=== PATIENT | female | born 1970 | race Caucasian/White ===

== ENCOUNTER 2017-08-22 08:45 | Outpatient (CLI) | payer BC ==
[2017-08-22 19:02] LABS: BASOPHILS % (AUTO) 0.5 %; EOSINOPHILS # (AUTO) 0.1 10^3/uL (0.0-0.7); EOSINOPHILS % (AUTO) 1.3 %; HCT - HEMATOCRIT 34.8 % (37.0-47.0); HGB - HEMOGLOBIN 11.5 g/dL (12.0-16.0); LYMPHOCYTES # (AUTO) 1.3 10^3/uL (1.5-3.5); LYMPHOCYTES % (AUTO) 21.8 %; MEAN CORPUSCULAR HEMOGLOBIN 34.1 pg (27.0-31.0); MEAN CORPUSCULAR HGB CONC 33.1 g/dL (32.0-36.0); MONOCYTES # (AUTO) 0.6 10^3/uL (0.0-1.0); MONOCYTES % (AUTO) 10.4 %; NEUTROPHILS # (AUTO) 3.9 10^3/uL (1.5-6.6); RED BLOOD COUNT 3.38 10^6/uL (4.20-5.40); UNCORRECTED WHITE BLOOD COUNT 5.9 x10^3/uL; WHITE BLOOD COUNT 5.9 x10^3/uL (4.8-10.8)
[2017-08-22 19:30] LABS: ALBUMIN/GLOBULIN RATIO 1.5 (1.0-2.2); BILIRUBIN,TOTAL 0.3 mg/dL (0.2-1.0); BUN - BLOOD UREA NITROGEN 8 mg/dL (6-20); CALCIUM 8.8 mg/dL (8.5-10.3); CARBON DIOXIDE - CO2 25 mmol/L (21-32); CHLORIDE 97 mmol/L (101-111); CHOL/HDL RATIO 2.3 (<4.4); CHOLESTEROL 175 mg/dL; CREATININE 0.6 mg/dL (0.4-1.0); GFR - MDRD 107 (>89); GLUCOSE 78 mg/dL (70-100); HDL CHOLESTEROL 75 mg/dL; LDL/HDL RATIO 0.8 (<4.4); POTASSIUM 4.2 mmol/L (3.5-5.0); SODIUM 131 mmol/L (135-145); TOTAL PROTEIN 7.2 g/dL (6.7-8.2); TRIGLYCERIDES 213 mg/dL; VLDL CHOLESTEROL 43 mg/dL
== END 2017-08-22 08:46 | disposition home or self-care (01) ==
LOC: LAB.F 08:45
PROVIDERS: ATTEND Physician Assistant Medical
DX: Z00.00 Encounter for general adult medical examination without abnormal findings (principal); E55.9 Vitamin D deficiency, unspecified; Z79.899 Other long term (current) drug therapy; I10 Essential (primary) hypertension
CPT/HCPCS: 36415; 80053; 80061; 82306; 84443; 85025

== ENCOUNTER 2019-05-05 09:29 | Outpatient (CLI) | payer OTHER ==
--- NOTE | 2019-05-06 08:51 | Mammography Report ---
Reason: SCREENING MAMMO Procedure Date: 05/05/2019 Accession Number: [id number] / [id number] Procedure: MGS - Screening Mammo Dig Bilat CPT Code: FULL RESULT: EXAM: Screening Mammo Dig Bilat DATE: 05/05/2019 9:43 AM CLINICAL HISTORY: Screening encounter. History of nulliparity. TECHNIQUE: (B) - Bilateral CC and MLO views were obtained. COMPARISON: 12/15/2014 and 10/28/2010. PARENCHYMAL PATTERN: (A) - The breast(s) demonstrate(s) scattered fibroglandular densities. FINDINGS: There are no suspicious masses, calcifications, or areas of distortion. IMPRESSION: Negative examination. BI-RADS category 1. RECOMMENDATION: (ANNUAL) - Recommend routine annual screening mammography. BI-RADS CATEGORY: (1) - Negative. STANDARD QUALIFYING STATEMENTS: 1. This examination was reviewed with the aid of Computer-Aided Detection (CAD). 2. A negative or benign imaging report should not preclude biopsy if clinically suspicious findings are present. 3. Dense breasts may obscure an underlying neoplasm. 4. This examination was reviewed without the aid of 3D breast imaging (tomosynthesis).
== END 2019-05-05 09:30 | disposition home or self-care (01) ==
LOC: DI.S 09:29
PROVIDERS: ATTEND Nurse Practitioner Family
DX: Z12.31 Encounter for screening mammogram for malignant neoplasm of breast (principal)
CPT/HCPCS: 77067

== ENCOUNTER 2021-04-05 10:52 | Outpatient (CLI) | payer OTHER ==
[2021-04-05 15:01] LABS: ALBUMIN 4.4 g/dL (3.2-5.5); ALBUMIN/GLOBULIN RATIO 1.4 (1.0-2.2); BILIRUBIN,TOTAL 0.6 mg/dL (0.2-1.0); CALCIUM 9.1 mg/dL (8.5-10.3); CREATININE 0.6 mg/dL (0.4-1.0); POTASSIUM 4.4 mmol/L (3.5-5.0); TOTAL PROTEIN 7.5 g/dL (6.7-8.2)
== END 2021-04-05 10:53 | disposition home or self-care (01) ==
LOC: LAB.S 10:52
PROVIDERS: ATTEND Registered Nurse
DX: I10 Essential (primary) hypertension (principal)
CPT/HCPCS: 36415; 80053

== ENCOUNTER 2022-01-30 08:38 | Outpatient (CLI) | payer OTHER ==
--- NOTE | 2022-01-30 11:44 | Mammography Report ---
BILATERAL DIGITAL SCREENING MAMMOGRAM 3D/2D: 01/30/2022 CLINICAL: Routine screening. Family history of breast cancer. Comparison is made to exams dated: 05/05/2019 mammogram and 12/15/2014 mammogram - [facility]. There are scattered fibroglandular elements in both breasts. No significant masses, calcifications, or other findings are seen in either breast. There has been no significant interval change. IMPRESSION: NEGATIVE There is no mammographic evidence of malignancy. A 1 year screening mammogram is recommended. This exam was interpreted at Station ID: [id number]. NOTE: For mammograms, a report in lay terms will be sent to the patient. Approximately 15% of breast malignancies will not be visualized mammographically. In the management of a palpable breast mass, a negative mammogram must not discourage biopsy of a clinically suspicious lesion. Electronically Signed By: Ale howard/penrad:01/30/2022 10:43:36 ACR BI-RADS Category 1: Negative 3341F PARENCHYMAL PATTERN: (A) - The breast(s) demonstrate(s) scattered fibroglandular densities. BI-RADS CATEGORY: (1) - 1 RECOMMENDATION: (ANNUAL) - Recommend routine annual screening mammography. [id number] 1 year screening LATERALITY: (B)
== END 2022-01-30 08:39 | disposition home or self-care (01) ==
LOC: DI.S 08:38
PROVIDERS: ATTEND Nurse Practitioner Family
DX: Z12.31 Encounter for screening mammogram for malignant neoplasm of breast (principal); Z80.3 Family history of malignant neoplasm of breast

== ENCOUNTER 2022-04-05 08:37 | Outpatient (CLI) | payer OTHER ==
[2022-04-05 14:43] LABS: BASOPHILS % (AUTO) 0.5 %; EOSINOPHILS # (AUTO) 0.2 10^3/uL (0.0-0.7); EOSINOPHILS % (AUTO) 2.6 %; HCT - HEMATOCRIT 36.6 % (37.0-47.0); HGB - HEMOGLOBIN 12.2 g/dL (12.0-16.0); LYMPHOCYTES # (AUTO) 1.5 10^3/uL (1.5-3.5); LYMPHOCYTES % (AUTO) 20.8 %; MEAN CORPUSCULAR HEMOGLOBIN 34.3 pg (27.0-31.0); MEAN CORPUSCULAR HGB CONC 33.3 g/dL (32.0-36.0); MEAN CORPUSCULAR VOLUME 102.8 fL (81.0-99.0); MEAN PLATELET VOLUME 9.8 fL (7.9-10.8); MONOCYTES # (AUTO) 0.7 10^3/uL (0.0-1.0); MONOCYTES % (AUTO) 9.7 %; NEUTROPHILS # (AUTO) 4.9 10^3/uL (1.5-6.6); NEUTROPHILS % (AUTO) 66.1 %; PLT - PLATELET COUNT 321 10^3/uL (130-450); RED BLOOD COUNT 3.56 10^6/uL (4.20-5.40); RED CELL DISTRIBUTION WIDTH 12.7 % (12.0-15.0); WHITE BLOOD COUNT 7.3 x10^3/uL (4.8-10.8)
[2022-04-05 15:15] LABS: FOLATE 6.79 ng/mL (5.90 - >24.8)
[2022-04-05 15:28] LABS: ALBUMIN 4.3 g/dL (3.2-5.5); ALBUMIN/GLOBULIN RATIO 1.2 (1.0-2.2); BILIRUBIN,TOTAL 0.7 mg/dL (0.2-1.0); CALCIUM 9.5 mg/dL (8.5-10.3); CREATININE 0.6 mg/dL (0.4-1.0); POTASSIUM 4.3 mmol/L (3.5-5.0); TOTAL PROTEIN 7.8 g/dL (6.7-8.2)
== END 2022-04-05 08:38 | disposition home or self-care (01) ==
LOC: LAB.S 08:37
PROVIDERS: ATTEND Registered Nurse
DX: L50.8 Other urticaria (principal); R74.8 Abnormal levels of other serum enzymes; D75.89 Other specified diseases of blood and blood-forming organs
CPT/HCPCS: 36415; 80053; 82607; 82746; 82977; 83520; 84443; 85025; 86160; 86161

== ENCOUNTER 2023-03-12 07:08 | Outpatient (CLI) | payer OTHER ==
--- NOTE | 2023-03-12 09:36 | Ultrasound Report ---
PROCEDURE: Abdomen Limited INDICATIONS: ELEVATED LIVER ENZYMES TECHNIQUE: Real-time focused scanning was performed of the abdomen, with image documentation. COMPARISONS: None. FINDINGS: Liver: Liver is normal in size and homogeneous in echotexture. Gallbladder: Unremarkable. Biliary ducts: Intrahepatic bile ducts are non-dilated. Extrahepatic bile duct caliber measures 4 m m. Normal is 6-7 mm or less in diameter, or 10 mm or less post-cholecystectomy. Pancreas: Visualized portions of the pancreas are sonographically normal. Right kidney: Normal in size and echotexture. Right kidney measures 10.0 cm long. No hydronephrosis or nephrolithiasis. No solid masses. No complex renal cystic lesions which require follow-up. Aorta: Visualized aorta is normal in caliber at less than 3 cm. IVC: Intrahepatic inferior vena cava is patent. Miscellaneous: No free abdominal fluid. IMPRESSION: Unremarkable abdominal ultrasound. Reviewed by: Rolf Pearson MD on 03/12/2023 9:35 AM PDT Approved by: Rolf Pearson MD on 03/12/2023 9:35 AM PDT Station ID: [id number]
== END 2023-03-12 07:09 | disposition home or self-care (01) ==
LOC: DI 07:08
PROVIDERS: ATTEND Registered Nurse
DX: R74.01 Elevation of levels of liver transaminase levels (principal)

== ENCOUNTER 2023-06-29 13:24 | Outpatient (CLI) | payer OTHER ==
[2023-06-29 19:35] LABS: BASOPHILS % (AUTO) 0.7 %; EOSINOPHILS # (AUTO) 0.2 10^3/uL (0.0-0.7); EOSINOPHILS % (AUTO) 3.3 %; HCT - HEMATOCRIT 32.9 % (37.0-47.0); HGB - HEMOGLOBIN 10.7 g/dL (12.0-16.0); LYMPHOCYTES # (AUTO) 2.1 10^3/uL (1.5-3.5); LYMPHOCYTES % (AUTO) 45.4 %; MEAN CORPUSCULAR HEMOGLOBIN 34.2 pg (27.0-31.0); MEAN CORPUSCULAR HGB CONC 32.5 g/dL (32.0-36.0); MEAN CORPUSCULAR VOLUME 105.1 fL (81.0-99.0); MEAN PLATELET VOLUME 10.8 fL (7.9-10.8); MONOCYTES # (AUTO) 0.6 10^3/uL (0.0-1.0); MONOCYTES % (AUTO) 12.6 %; NEUTROPHILS # (AUTO) 1.7 10^3/uL (1.5-6.6); NEUTROPHILS % (AUTO) 37.8 %; PLT - PLATELET COUNT 194 10^3/uL (130-450); RED BLOOD COUNT 3.13 10^6/uL (4.20-5.40); RED CELL DISTRIBUTION WIDTH 13.2 % (12.0-15.0); WHITE BLOOD COUNT 4.5 x10^3/uL (4.8-10.8)
[2023-06-29 20:54] LABS: ALBUMIN 3.7 g/dL (3.2-5.5); ALBUMIN/GLOBULIN RATIO 1.5 (1.0-2.2); BILIRUBIN,TOTAL 0.4 mg/dL (0.2-1.0); CALCIUM 8.8 mg/dL (8.5-10.3); CREATININE 0.9 mg/dL (0.6-1.3); POTASSIUM 4.1 mmol/L (3.5-4.5); TOTAL PROTEIN 6.1 g/dL (6.4-8.9)
== END 2023-06-29 13:25 | disposition home or self-care (01) ==
LOC: LAB.S 13:24
PROVIDERS: ATTEND Physician Assistant
DX: R10.13 Epigastric pain (principal); M54.89 Other dorsalgia
CPT/HCPCS: 36415; 80053; 83690; 85025

== ENCOUNTER 2023-11-22 13:13 | Observation (INO) | payer OTHER ==
--- NOTE | 2023-11-22 14:32 | ED Physician Documentation ---
History of Present Illness - Stated complaint Stated Complaint: FEET NUMBNESS,HAND NUMBESS, L SIDE - Chief complaint Chief Complaint: Neuro - History obtained from History obtained from: Patient - Additonal information Additional information: Patient comes to the emergency department chief complaint of feeling of numbness in her feet today and feeling weak and lightheaded. The patient states that she does drink 4-5 vodka drinks every day but also drinks a lot of water. She states that she went to work this morning without eating breakfast and was on her feet all day without eating anything. She began to feel lightheaded and Ended up having to leave work. She states it was very cold at work when she got there and that she has poor circulation from her drinking and Raynaud's, and that her feet just began to feel very tingly. The patient states she has the same problems in her hands. She is very well-established with primary care and that they have been following her for her ongoing appetite issues and vomiting as well. She states that has been going on and off for months. PD PAST MEDICAL HISTORY - Past Medical History Past Medical History: Yes Neuro: Other GI: GERD Other Past Medical History: paul - Past Surgical History Past Surgical History: No - Present Medications Home Medications: Ambulatory Orders Medication Instructions Recorded Confirmed Fluoxetine HCl [Prozac] 20 mg PO DAILY 11/22/23 11/22/23 Folic Acid 10 mg PO DAILY 11/22/23 11/22/23 Lisinopril [Zestril] 10 mg PO DAILY 11/22/23 11/22/23 Metoprolol Succinate [Toprol Xl] 50 mg PO DAILY 11/22/23 11/22/23 Pantoprazole Sodium [Protonix] 20 mg PO DAILY 11/22/23 11/22/23 - Allergies Allergies/Adverse Reactions: Allergies Allergy/AdvReac Type Severity Reaction Status Date / Time No Known Drug Allergies Allergy Verified 11/22/23 14:28 - Social History Does the pt smoke?: No Smoking Status: Never smoker Does the pt drink ETOH?: Yes ETOH Use: Wine, Liquor Does the pt have substance abuse?: No - Immunizations Immunizations are current?: No - POLST Patient has POLST: No PD ED PE NORMAL - Vitals Vital signs reviewed: Yes - General General: Alert and oriented X 3, No acute distress, Well developed/nourished - HEENT HEENT: Atraumatic, PERRL, EOMI, Moist mucous membranes - Neck Neck: Supple, no meningeal sign - Cardiac Cardiac: RRR, No murmur - Respiratory Respiratory: No respiratory distress, Clear bilaterally - Abdomen Abdomen: Soft, Non tender, Non distended - Derm Derm: Warm and dry, No rash, Other (Purpleish discoloration of hands and feet.) - Extremities Extremities: No deformity, No edema - Neuro Neuro: Alert and oriented X 3 - Psych Psych: Normal mood, Normal affect Results - Vitals Vitals: Oxygen O2 Source Room air - Labs Labs: Laboratory Tests 11/22/23 11/22/23 11/22/23 14:38 14:38 15:45 WBC 4.5 L RBC 2.93 L Hgb 11.8 L Hct 29.5 L MCV 100.7 H MCH 33.6 H MCHC 34.0 RDW 13.1 Plt Count 190 MPV 9.7 Neut # (Auto) 2.6 Lymph # (Auto) 1.5 [place] # (Auto) 0.4 Eos # (Auto) 0.0 Baso # (Auto) 0.0 Absolute Nucleated RBC 0.00 Nucleated RBC % 0.0 Sodium 120 L* Potassium 4.2 Chloride 87 L Carbon Dioxide 20 L Anion Gap 13.0 BUN 17 Creatinine 0.4 L Estimated GFR (MDRD) 167 Glucose 84 Calcium 8.4 L Total Bilirubin 1.4 H AST 212 H ALT 83 H Alkaline Phosphatase 216 H Troponin I High Sens 4.4 Total Protein 5.6 L Albumin 3.4 Globulin 2.2 Albumin/Globulin Ratio 1.5 Lipase 116 H Urine Opiates Screen NEGATIVE Ur Buprenorphine Scrn NEGATIVE Ur Oxycodone Screen NEGATIVE Urine Methadone Screen NEGATIVE Ur Barbiturates Screen NEGATIVE Ur Tricyclics Screen NEGATIVE Ur Phencyclidine Scrn NEGATIVE Ur Amphetamine Screen NEGATIVE U Methamphetamines Scrn NEGATIVE U Benzodiazepines Scrn NEGATIVE Urine Cocaine Screen NEGATIVE U Cannabinoids Screen NEGATIVE Ur Drug Screen Comment CUTOFF CONC BELOW: PD Medical Decision Making - ED course Complexity details: reviewed results, re-evaluated patient, considered differential, d/w patient, d/w family ED course: The patient was very anxious to get her test done and leave the emergency department, but the patient turnout to have a sodium of 120. I felt she should be admitted for this. She had already been given a liter of fluid in the emergency department and I discussed the case with Dr. Howard, who agreed to admit the patient to her service. Departure - Departure Disposition: ED Place in Observation Clinical Impression: Hyponatremia Condition: Fair Discharge Date/Time: 11/22/23 17:26
[2023-11-22 14:47] LABS: BASOPHILS % (AUTO) 0.7 %; EOSINOPHILS % (AUTO) 0.2 %; HCT - HEMATOCRIT 29.5 % (37.0-47.0); HGB - HEMOGLOBIN 11.8 g/dL (12.0-16.0); LYMPHOCYTES # (AUTO) 1.5 10^3/uL (1.5-3.5); LYMPHOCYTES % (AUTO) 33.6 %; MEAN CORPUSCULAR VOLUME 100.7 fL (81.0-99.0); MEAN PLATELET VOLUME 9.7 fL (7.9-10.8); MONOCYTES # (AUTO) 0.4 10^3/uL (0.0-1.0); MONOCYTES % (AUTO) 8.1 %; NEUTROPHILS # (AUTO) 2.6 10^3/uL (1.5-6.6); NEUTROPHILS % (AUTO) 57.2 %; PLT - PLATELET COUNT 190 10^3/uL (130-450); RED BLOOD COUNT 2.93 10^6/uL (4.20-5.40); RED CELL DISTRIBUTION WIDTH 13.1 % (12.0-15.0); WHITE BLOOD COUNT 4.5 x10^3/uL (4.8-10.8)
[2023-11-22 15:06] LABS: TROPONIN I HIGH SENSITIVITY 4.4 ng/L (2.3-14.8)
[2023-11-22 15:30] LABS: ALBUMIN 3.4 g/dL (3.2-5.5); ALBUMIN/GLOBULIN RATIO 1.5 (1.0-2.2); BILIRUBIN,TOTAL 1.4 mg/dL (0.2-1.0); CALCIUM 8.4 mg/dL (8.5-10.3); CREATININE 0.4 mg/dL (0.6-1.3); POTASSIUM 4.2 mmol/L (3.5-4.5); TOTAL PROTEIN 5.6 g/dL (6.4-8.9)
[2023-11-22 15:55] LABS: MEAN CORPUSCULAR HEMOGLOBIN 33.6 pg (27.0-31.0)
[2023-11-22] MEDS ORDERED: SODIUM CHLORIDE FLUSH 0.9% 10 ML SYRINGE IVP PRN (16:15)
[2023-11-22] MEDS ORDERED: ONDANSETRON ODT 4 MG TABLET TL PRN (16:15)
[2023-11-22] MEDS ORDERED: oxyCODONE 5 MG TABLET PO PRN (16:15)
[2023-11-22] MEDS ORDERED: ACETAMINOPHEN 325 MG TABLET PO PRN (16:15)
[2023-11-22] MEDS ORDERED: diazePAM INJ 5 MG/ML SYRINGE IVP PRN (16:18)
--- NOTE | 2023-11-22 16:28 | PHARMACY PROGRESS NOTE ---
- Best Possible Medication History Admit Date and Time: Processed by: Nursing Medications reviewed in ED?: Yes Medication History completed: Yes Patient Interview: Completed Secondary Source(s): Insurance records As the person ultimately responsible for medication therapy, providers are able to order a medication from an existing home medication list in [facility] via the "Reconcile Routine" prior to Confirmation of that medication by account support rep. Such practice is discouraged except when the physician, in their clinical judgment, deems that a medical need exists for a medication without regard to previous use.
[2023-11-22 16:49] LABS: AMPHETAMINE SCREEN,URINE NEGATIVE (NEGATIVE); BARBITURATE SCREEN,UR NEGATIVE (NEGATIVE); BENZODIAZEPINES SCREEN, URINE NEGATIVE (NEGATIVE); BUPRENORPHINE SCREEN, URINE NEGATIVE (NEGATIVE); COCAINE SCREEN URINE NEGATIVE (NEGATIVE); METHADONE SCREEN, URINE NEGATIVE (NEGATIVE); METHAMPHETAMINES SCREEN, URINE NEGATIVE (NEGATIVE); OPIATE SCREEN, URINE NEGATIVE (NEGATIVE); OXYCODONE SCREEN, URINE NEGATIVE (NEGATIVE); THC CANNABINOID SCREEN, URINE NEGATIVE (NEGATIVE); TRICYCLIC ANTIDEPRESSANT,URINE NEGATIVE (NEGATIVE)
[2023-11-22] MEDS: MAGNESIUM SULFATE 2 GRAM 2 GM/50 ML BAG IV ONE (16:50)
[2023-11-22] MEDS: SODIUM CHLORIDE 0.9% 1,000 ML IV STA (16:52)
[2023-11-22] MEDS: SODIUM CHLORIDE FLUSH 0.9% 10 ML SYRINGE IVP SCH (17:55)
[2023-11-22] MEDS: ONDANSETRON 4 MG/2 ML VIAL IVP PRN (18:40)
[2023-11-22 20:43] LABS: CALCIUM 8.2 mg/dL (8.5-10.3); CREATININE 0.6 mg/dL (0.6-1.3); POTASSIUM 3.5 mmol/L (3.5-4.5)
--- NOTE | 2023-11-22 21:10 | HISTORY & PHYSICAL EXAMINATION ---
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 Has been working there for 12 years. She has drank alcohol since her 20s but never had problems with alcohol abuse until the pandemic. The pandemic resulted in boredom, being at home too much, and she started drinking. She drinks about 5-6 shots of vodka a day. Also drinks occasional wine of 3 to 4 glasses a day. She has never had blackouts, alcohol withdrawal seizures, tremulousness, and does not consider herself an alcoholic. When she does stop drinking a couple of days, she has not had withdrawal. She is currently being seen by her primary care provider for GI issues. She has a lot of nausea, occasional vomiting. That she will have episodes of diarrhea followed by episodes of constipation. There is been no weight loss, fever, chills. Occasionally the nausea is associated with generalized abdominal pain that is severe. She used to have regular periods and then about 4 months ago had 6 weeks of spotting. Then after the 6 weeks of spotting and using occasional tampon, she has not had a menstrual cycle since. The generalized abdominal pain sometimes radiates to her lower back. Especially in the last 2 weeks. It is agonizing. She sometimes cannot stand up with it. The back pain does not radiate down her buttocks or her legs. There is no incontinence with this. She is due for a Pap smear with her next PCP visit. She is also getting an upper and lower endoscopy on November 25 with the [facility]. She is just been miserable the last couple of weeks. Does not feel good. But she cannot put her finger on it. Then today at work she actually started feeling like her feet and legs were getting numb. She has a history of Raynaud's where her hands will get cold and numb. So initially she thought it was a Raynaud's. But then she started having chest pain. Specific, located in the center of her chest. Nonradiating. And induced and made worse by fear. Better when she lay down and try to relax. She took herself to the urgent care walk- in clinic in [place] but they were so busy they said that she should go to the emergency room. She went back home. And it was her aunt and her best friend and they convinced her to come to our ER. In our ER temperature was 37. Heart rate 67. Blood pressure 164/94. She was 100% saturated on room air. She is 5 foot 7 inches tall and weighs 63 kg. She was described as alert, oriented. She was starting to get a little "shaky". Lab work showed a sodium of 120. Potassium 4.2. Carbon dioxide 20. Chloride 8 7. BUN 17, creatinine 0.4. Calcium is 8.4. Bili 1.4. AST 212, ALT 83. Lipase 116. White cell count is 4.5, hemoglobin 11.8 and MCV is 100.7. I had the lab do a toxicology screen and she is negative for all substances from opioids to amphetamines to cannabinoids. EKG had sinus rhythm with a PVC. She had normal R wave progression. Borderline prolonged QT. ER provider is asking that I admit this patient for symptomatic hyponatremia and for possible early alcohol withdrawal. History - Past Medical History Cardiovascular: reports: Hypertension Respiratory: reports: None Neuro: reports: None Endocrine/Autoimmune: reports: None GI: reports: GERD, Chronic diarrhea, Chronic constipation SHIRRER: reports: Other (, Last menstrual period 4 months ago) : reports: None HEENT: reports: Glaucoma, Other (Chronic use of prescription eyeglasses, no ca taract) Psych: reports: Depression (Off and on her entire life. No history of suicidal ideation. History of suicide attempt.) Musculoskeletal: reports: Chronic back pain (for the last few weeks, new) Derm: reports: Other (Blood nasal labial rash every winter that is getting worse. Around her eyebrows. No other part of her body.) Other Past Medical History: paul - Past Surgical History Ortho: reports: Other (Fracture of right fifth finger) - Family & Social History Family History Comment/Other: Mom and dad are in the early 70s and live in [place]. Mom has had several strokes and hypertension. Dad has diabetes and alcohol abuse. 2 brothers that are 7 and 14 years younger than her. Healthy. 2 daughters that are healthy. Living arrangement: At home Living Situation: With family [place]: [place] Working at the [employer] for 12 years. Lives in her own home with 1 daughter. Other daughter is now at college. No history of tobacco use or abuse. No use of recreational substance use. Alcohol abuse started in approximately 2019 and consist of vodka and wine on a daily basis. - Substance History Abuse: Recurrent use of substance despite neg consequences: Alcohol - POLST Patient has POLST: No POLST Status: Full Code Meds/Allgy - Home Medications Home Medications: Ambulatory Orders Medication Instructions Recorded Confirmed Fluoxetine HCl [Prozac] 20 mg PO DAILY 11/22/23 11/22/23 Folic Acid 10 mg PO DAILY 11/22/23 11/22/23 Lisinopril [Zestril] 10 mg PO DAILY 11/22/23 11/22/23 Metoprolol Succinate [Toprol Xl] 50 mg PO DAILY 11/22/23 11/22/23 Pantoprazole Sodium [Protonix] 20 mg PO DAILY 11/22/23 11/22/23 - Allergies Allergies/Adverse Reactions: Allergies Allergy/AdvReac Type Severity Reaction Status Date / Time No Known Drug Allergies Allergy Verified 11/22/23 14:28 Review of Systems - Constitutional Constitutional: reports: Fatigue, Malaise, Poor appetite. denies: Fever, Chills - Eyes Eyes: reports: Corrective lenses. denies: Pain, Irritation, Amaurosis, Blurred vision - Ears, Nose & Throat Ears, Nose & Throat: denies: Ear pain, Hearing loss, Hearing aids, Tinnitus, Vertigo, Nasal discharge, Nosebleeds, Dentures, Sore throat, Hoarseness - Cardiovascular Cariovascular: reports: Chest pain, Lightheadedness. denies: Irregular heart rate, Palpitations, Edema, Syncope, Exertional dyspnea, Decr. exercise tolerance - Respiratory Respiratory: denies: Cough, Sputum production, Wheezing, Snoring, SOB at rest, SOB with exertion - Gastrointestinal Gastrointestinal: reports: Abdominal pain, Abdominal distention, Constipation, Diarrhea, Change in bowel habits, Nausea, Vomiting, Reflux/heartburn, Bloating, Poor appetite. denies: Rectal bleeding, Black stools, Bloody stools, Bile emesis, Zander blood emesis, Coffee grounds emesis, Other - Genitourinary Genitourinary: denies: Dysuria, Frequency, Urgency, Hematuria - Musculoskeletal Musculoskeletal: reports: Back pain. denies: Muscle pain, Muscle aches, Stiffness, Gout, Joint pain - Integumentary Integumentary: reports: Rash (Every winter, on her face. Nasolabial folds, ch gambell, chin and eyebrows.). denies: Pruritis, Lesions, Dryness - Neurological Neurological: reports: Dizziness. denies: General weakness, Focal weakness, Headache, Memory problems, Pre-existing deficit, Abnormal gait, Seizures, Incoordination, Slurred speech - Psychiatric Psychiatric: reports: Depression. denies: Anxiety, Suicidal, Delusions, Hallucinations, Homicidal - Endocrine Endocrine: reports: Intolerance to cold (Raynaud's). denies: Polyuria, Polydypsia, Polyphagia - Hematologic/Lymphatic Hematologic/Lymphatic: denies: Anemia, Bruising, Petechiae Prior Level of Functionality: Patient drives a car, works full-time, takes care of her own house, pays the bills. There is no use of durable medical equipment. Exam - Vital Signs Reviewed Vital Signs: Yes Vital Signs: Vital Signs x48h Temp Pulse Pulse Resp BP BP Pulse Ox 11/22/23 20:08 37.2 C 75 20 129/74 99 11/22/23 17:33 37.1 C 88 20 167/89 H 100 11/22/23 17:00 103 H 16 120/72 100 11/22/23 15:32 71 16 138/77 H 100 11/22/23 13:26 37.0 C 67 20 164/94 H 100 - Physical Exam General Appearance: positive: No acute distress, Alert, Other (Slightly tearful white female looks stated age, no tremulousness or shakes, already asking when she can go home) Eyes Bilateral: positive: PERRL, EOMI ENT: positive: No signs of dehydration, Other (Red flaking rash that starts along the nose, spreads out along the nasolabial folds, perioral around the lips, and in her eyebrows. She looks like she has seborrhea.) Neck: positive: No JVD. negative: Stiff neck Respiratory: positive: No respiratory distress. negative: Wheezes, Rales, Rhonchi Cardiovascular: positive: Regular rate & rhythm, No murmur Peripheral Pulses: positive: 1+ Abdomen: positive: No organomegaly, Nml bowel sounds, Tenderness (Generalized. Mild.), Hepatomegaly. negative: No distention, Guarding, Rebound Skin: positive: Warm, Dry Extremities: positive: Non-tender, Full ROM Neurologic/Psychiatric: positive: Oriented x3, CN's nml (2-12), Motor nml, Mood/affect nml. negative: Weakness, Slurred/abnml speech Conclusion/Plan - Problem List (1) Hyponatremia Conclusion/Plan: Associated with alcohol abuse. She is also on an SSRI. SSRIs are also known to cause hyponatremia. I think the combination of both the SSRI and alcohol is what caused the current sodium level. Sodium levels in 2013 in 2014 were normal. Started to get low in 2017 and has been consistently 1 30-1 31. It was good to see and normal sodium in June 2023 but then she now presents with a sodium of 120. I think that if she were able to stop the alcohol abuse, she would be able to remain on the SSRI. Plan: Inpatient admission. I explained to her that we need to raise her sodium slowly. It may take is 2 days. She is not happy about that. I have ordered a banana bag which has normal saline. And then I will recheck sodium at 8 PM. My goal is to raise her sodium no more than 6 mmol in 24 hours. I will also resume her Prozac for now. But if the sodium is particularly resistant to treatment, I may have to hold it for a while. (2) Alcoholic hepatitis Conclusion/Plan: Due to excessive alcohol use. Previous enzymes in June 2023 were mildly elevated. But bili was normal, and alk phos was normal. For completeness sake of elevated liver enzymes, I will also do hepatitis panel. Check ultrasound in the morning. Do not think this is obstructive. Her generalized abdominal pain is not associated with epigastric or right upper quadrant pain. It is not made better or worse by food. Color has been a solid brown. No bowles or pale-colored stool. Qualifiers: Ascites presence: without ascites Qualified Code(s): K70.10 - Alcoholic hepatitis without ascites (3) Alcohol dependence with withdrawal Conclusion/Plan: The ER doctor described her as she "shaky". Patient states she is never gone through withdrawal. I started the CIWA protocol. So far she has not needed any Valium. I have ordered a banana bag. That has normal saline in it and I will not be giving other IV fluids until that is run through. And p.m. in mind that I do not want her sodium to get to 126 until tomorrow morning. Qualifiers: Complication of substance-induced condition: uncomplicated Qualified Code(s): F10.230 - Alcohol dependence with withdrawal, uncomplicated (4) Elevated lipase Conclusion/Plan: She gives a hx of generalized abdominal pain. Previous lipase was done in June 2023 and was normal at 37. She could have low-grade chronic pancreatitis due to alcohol abuse. Abdominal ultrasound ordered for hepatitis as well. I Will be checking daily lipase while she is here (5) Macrocytosis Conclusion/Plan: Most likely due to alcohol abuse. Check B12 and folate in the morning. Banana bag tonight. Mild anemia. But not at cutoff for transfusion. (6) Seborrhea of face Conclusion/Plan: Ongoing off-and-on for many years now. Getting worse. Frustrated by the lack of diagnosis. I told her that I do think it is seborrheic dermatitis of the face. I will print up either up-to-date or creams information for her. (7) Hypertension Conclusion/Plan: Her diagnosis of depression anti-CD20 history of alcohol abuse. Sometimes patients who have excessive alcohol use will have hypertension as the cause of her hypertension. In this patient's case most likely not. I will resume her Zestril and metoprolol. Qualifiers: Hypertension type: primary hypertension Qualified Code(s): I10 - Essential (primary) hypertension (8) Depression Conclusion/Plan: Prozac will be continued while she is here. Qualifiers: Depression Type: persistent depressive disorder Qualified Code(s): F34.1 - Dysthymic disorder - Lab Results Lab results reviewed: Yes Fish Bones: 11/22/23 14:38 11/22/23 20:04 - EKG Results EKG Interpreted Independently: No EKG Comparison: No prior EKG Core Measures - Anticipated LOS I expect patient to be DC'd or transferred within 96 hours.: Yes - DVT/VTE - Prophylaxis VTE/DVT Device ordered at admit?: Yes
[2023-11-22] MEDS: MULTIVITAMIN 10 ML, THIAMINE INJ 100 MG, FOLIC ACID INJ 1 MG in SODIUM CHLORIDE 0.9% 1,... IV SCH (23:40)
[2023-11-22] MEDS: SODIUM CHLORIDE 0.9% 1,000 ML IV SCH (23:58)
[2023-11-23 06:02] LABS: BASOPHILS % (AUTO) 0.7 %; EOSINOPHILS # (AUTO) 0.1 10^3/uL (0.0-0.7); HCT - HEMATOCRIT 28.5 % (37.0-47.0); HGB - HEMOGLOBIN 9.8 g/dL (12.0-16.0); LYMPHOCYTES # (AUTO) 1.6 10^3/uL (1.5-3.5); LYMPHOCYTES % (AUTO) 53.4 %; MEAN CORPUSCULAR HEMOGLOBIN 34.3 pg (27.0-31.0); MEAN CORPUSCULAR HGB CONC 34.4 g/dL (32.0-36.0); MEAN CORPUSCULAR VOLUME 99.7 fL (81.0-99.0); MEAN PLATELET VOLUME 10.1 fL (7.9-10.8); MONOCYTES # (AUTO) 0.3 10^3/uL (0.0-1.0); MONOCYTES % (AUTO) 9.1 %; NEUTROPHILS # (AUTO) 1.1 10^3/uL (1.5-6.6); NEUTROPHILS % (AUTO) 34.5 %; PLT - PLATELET COUNT 156 10^3/uL (130-450); RED BLOOD COUNT 2.86 10^6/uL (4.20-5.40); RED CELL DISTRIBUTION WIDTH 13.1 % (12.0-15.0); WHITE BLOOD COUNT 3.1 x10^3/uL (4.8-10.8)
[2023-11-23 07:08] LABS: ALBUMIN 2.9 g/dL (3.2-5.5); ALBUMIN/GLOBULIN RATIO 1.3 (1.0-2.2); BILIRUBIN,TOTAL 1.9 mg/dL (0.2-1.0); CALCIUM 7.7 mg/dL (8.5-10.3); CREATININE 0.7 mg/dL (0.6-1.3); POTASSIUM 3.3 mmol/L (3.5-4.5); TOTAL PROTEIN 5.2 g/dL (6.4-8.9)
[2023-11-23] MEDS: PANTOPRAZOLE 40 MG TABLET PO SCH (08:43)
[2023-11-23] MEDS: FLUoxetine 10 MG CAPSULE PO SCH (08:43)
[2023-11-23] MEDS: METOPROLOL SUCCINATE 50 MG TABLET PO SCH (08:43)
[2023-11-23] MEDS: lisinopriL 5 MG TABLET PO SCH (08:43)
[2023-11-23] MEDS: MULTIVITAMIN 10 ML, THIAMINE INJ 100 MG, POTASSIUM CHLORIDE INJ 20 MEQ, FOLIC ACID INJ ... IV SCH (08:59)
[2023-11-23] MEDS ORDERED: PANTOPRAZOLE 40 MG TABLET PO SCH (09:00)
[2023-11-23] MEDS ORDERED: MULTIVITAMIN 10 ML, THIAMINE INJ 100 MG, FOLIC ACID INJ 1 MG in SODIUM CHLORIDE 0.9% 1,... IV SCH (09:00)
--- NOTE | 2023-11-23 09:32 | Ultrasound Report ---
PROCEDURE: Abdomen Complete INDICATIONS: alcohol abuse, lfts high, gen abd pain TECHNIQUE: Real-time scanning was performed of the abdominal and retroperitoneal organs, with image documentatio n. COMPARISON: None. FINDINGS: Liver: Liver measures 17 cc. Overall liver is borderline-enlarged, and echogenic. Gallbladder: Unremarkable. Biliary ducts: Intrahepatic bile ducts are non-dilated. Extrahepatic bile duct caliber measures 4 m m. Normal is 6-7 mm or less in diameter, or 10 mm or less post-cholecystectomy. Pancreas: Visualized portions of the pancreas are sonographically normal. Spleen: Spleen is normal in size and homogeneous in echotexture. Kidneys: Kidneys are normal in size and echotexture. Right kidney measures 9 cm long; left kidney m easures 9 cm long. No solid masses. No complex lesions requiring follow-up. No hydronephrosis. Mild c ortical thinning bilaterally measuring a thickness of 0.8 cm. Aorta: Visualized aorta is normal in caliber at less than 3 cm. Iliacs: Proximal common iliac arteries are normal in caliber at less than 2.5 cm. IVC: Intrahepatic inferior vena cava is patent. Miscellaneous: No free abdominal fluid. IMPRESSION: Echogenic liver, which is borderline large. Findings are nonspecific, most commonly due to steatosis. Mild nonspecific cortical thinning in the kidneys. No hydronephrosis. No biliary ductal dilation. Reviewed by: Vladimir Carlos MD on 11/23/2023 9:31 AM PDT Approved by: Vladimir Carlos MD on 11/23/2023 9:31 AM PDT Station ID: [id number]
[2023-11-23 09:39] LABS: MAGNESIUM 1.8 mg/dL (1.7-2.3)
--- NOTE | 2023-11-23 11:18 | Discharge Plan ---
Discharge Plan Problem Reviewed?: Yes Disposition: Home, Self Care Condition: Fair Diet: Regular Activity Restrictions: Activity as Tolerated Shower Restrictions: No Driving Restrictions: No Instruction Topics: Seborrheic Dermatitis, Lipase, Pancreatitis, Cirrhosis Health Concerns: You came to the emergency room because you are having numbness and tingling of your feet associated with a brief episode of chest pain. You are afraid you are having a heart attack. You went to the urgent care clinic but they said they were too busy and asked you to go to the emergency room. He went home for a while and then your friends and family talked into coming to the emergency room. In our emergency room we found you to have alcoholic hepatitis, a low sodium to 120. Normal sodium is 135. We were also afraid that you are in a going to alcohol withdrawal. After being in the hospital overnight we gave you salt water intravenously. Your sodium is now normal. You also take Prozac. Prozac is a serotonin reuptake inhibitor. As a medication, it is one of the most common causes of low sodium across the [place]. Unfortunately I think between your alcohol abuse and the Prozac your sodium got dangerously low. In reviewing the records, your sodium started become abnormal over the last year or so. Plan of Treatment: 1. Please see your primary care provider in follow-up in the next 1 to 2 weeks 2. I do not recommend that you stop your Prozac. But I would have your sodium checked every 2 to 3 months to make sure is not getting dangerously low. We see sodium was of between 129-135 with Prozac or drugs in that class. And we do not do any extra intervention for that. 3. You stated that you will no longer abuse alcohol. I do consider you a alcoholic, and we are glad that you not go through withdrawal. Ultrasound of your liver does show that you have changes of early cirrhosis. I do believe that if you stop drinking, your liver will go back to normal. I also think that your generalized abdominal pain is probable low-grade pancreatitis from your alcoholism. That would also affect your bowel. Once you start drinking I am hoping that your bowel problems will also resolve. If you continue to have bowel problems ask your primary care provider to check your lipase. You may be a candidate for taking pancreatic enzymes temporarily. 4. You complained of a face rash upon admission. It has been going on for years. Worse in the winter. I believe you have seborrhea of your face. In examining you, you have the classic distribution of seborrhea along your nasolabial folds, and eyebrows and around your mouth and into your chin. Please ask your primary care provider for treatment for that. I am sending you home with some information on seborrhea. 5. Although I do believe you have alcoholic hepatitis as the cause of your elevated liver enzymes and elevated pancreatic enzymes with pancreas inflammation, I did do a workup to make sure you did not have any other causes of hepatitis. Those blood tests were drawn on the morning of discharge and they are pending. Make sure your primary care provider looks at those labs. Care Goals: To have resolution of your abdominal complaints and to have your sodium get back to normal. You also have determined that you will become clean and sober and will be talking to your friends who are part of AA to do that. Assessment: Patient is alert, oriented, understands situation. Promises to follow through and is determined to get her health back on track. No Smoking: If you smoke, Please STOP! Call for help.
[2023-11-23 12:07] LABS: CALCIUM 7.7 mg/dL (8.5-10.3); CREATININE 0.7 mg/dL (0.6-1.3); POTASSIUM 3.6 mmol/L (3.5-4.5)
[2023-11-23 14:23] VITALS: O2SAT 98
[2023-11-23] MEDS: POTASSIUM CHLORIDE 20 MEQ/15 ML UDC PO SCH (14:43)
[2023-11-23 15:43] VITALS: BP 139/82
--- NOTE | 2023-11-24 07:47 | DISCHARGE SUMMARY ---
Discharge Summary Admit Date: 11/22/23 Discharge Date: 11/23/23 Discharging Provider: Georgina Howard MD Primary Care Provider: Deborah Kwan Code Status: Attempt Resuscitation Condition at Discharge: Fair Discharge Disposition: 01 Home, Self Care - DIAGNOSES Discharge Diagnoses with Status of Each Condition: 1. Hyponatremia 2. Alcohol dependence with mild withdrawal 3. Alcoholic hepatitis 4. Depression with patient on SSRI 5. Seborrhea of face 6. Macrocytosis 7. Elevated lipase 8. 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 Has been working there for 12 years. She has drank alcohol since her 20s but never had problems with alcohol abuse until the pandemic. The pandemic resulted in boredom, being at home too much, and she started drinking. She drinks about 5-6 shots of vodka a day. Also drinks occasional wine of 3 to 4 glasses a day. She has never had blackouts, alcohol withdrawal seizures, tremulousness, and does not consider herself an alcoholic. When she does stop drinking a couple of days, she has not had withdrawal. She is currently being seen by her primary care provider for GI issues. She has a lot of nausea, occasional vomiting. That she will have episodes of diarrhea followed by episodes of constipation. There is been no weight loss, fever, chills. Occasionally the nausea is associated with generalized abdominal pain that is severe. She used to have regular periods and then about 4 months ago had 6 weeks of spotting. Then after the 6 weeks of spotting and using occasional tampon, she has not had a menstrual cycle since. The generalized abdominal pain sometimes radiates to her lower back. Especially in the last 2 weeks. It is agonizing. She sometimes cannot stand up with it. The back pain does not radiate down her buttocks or her legs. There is no incontinence with this. She is due for a Pap smear with her next PCP visit. She is also getting an upper and lower endoscopy on November 25 with the [facility]. She is just been miserable the last couple of weeks. Does not feel good. But she cannot put her finger on it. Then today at work she actually started feeling like her feet and legs were getting numb. She has a history of Raynaud's where her hands will get cold and numb. So initially she thought it was a Raynaud's. But then she started having chest pain. Specific, located in the center of her chest. Nonradiating. And induced and made worse by fear. Better when she lay down and try to relax. She took herself to the urgent care walk-i n clinic in [place] but they were so busy they said that she should go to the emergency room. She went back home. And it was her aunt and her best friend and they convinced her to come to our ER. In our ER temperature was 37. Heart rate 67. Blood pressure 164/94. She was 100% saturated on room air. She is 5 foot 7 inches tall and weighs 63 kg. She was described as alert, oriented. She was starting to get a little "shaky". Lab work showed a sodium of 120. Potassium 4.2. Carbon dioxide 20. Chloride 87. BUN 17, creatinine 0.4. Calcium is 8.4. Bili 1.4. AST 212, ALT 83. Lipase 116. White cell count is 4.5, hemoglobin 11.8 and MCV is 100.7. I had the lab do a toxicology screen and she is negative for all substances from opioids to amphetamines to cannabinoids. EKG had sinus rhythm with a PVC. She had normal R wave progression. Borderline prolonged QT. ER provider is asking that I admit this patient for symptomatic hyponatremia and for possible early alcohol withdrawal. 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 No history of suicidal ideation. History of suicide attempt.) Musculoskeletal: reports: Chronic back pain (for the last few weeks, new) Derm: reports: Other (Blood nasal labial rash every winter that is getting worse. Around her eyebrows. No other part of her body.) Other Past Medical History: reynauds - Past Surgical History Ortho: reports: Other (Fracture of right fifth finger) - CONSULTS | PROCEDURES Procedures: Abdominal ultrasound with echogenic liver. Borderline large. Compared to previous ultrasound in the last few months there is much more progression of f atty liver changes. No intraductal dilatation. No ductal dilatation. B12 levels were asked by nutrition services due to macrocytosis. B12 is 1904. Folate was 13.3. Hepatitis panel was sent off for completeness sake. It has been drawn and it is a send out lab. I would ask your primary care provider follow-up on those results. - HOSPITAL COURSE Hospital Course: She was placed in the hospital because of probable symptomatic hyponatremia. She has had gradually reducing sodium levels for a couple of years now. This patient is on an SSRI. However there is now the added risk of alcohol abuse. She was started on normal saline and had rapid correction, unfortunately, over sodium. She went from 09 29-10 10. She no longer had numbness and tingling in her feet. She received 1 dose of a benzodiazepine for mild alcohol withdrawal and shakiness and never went into full-blown withdrawal. I explained to her that the low sodium may be also due to SSRI use. She felt like she could address her alcoholism without a formal program. She says that she is going to seek advice from a friend who is active in Alcoholics Anonymous. She also stated that she would never drink again. I do feel that she may have some mild generalized abdominal complaints from her drinking. She may even have low-grade pancreatitis. She is due for a colonoscopy on November 25. She will be calling up [facility] to see if she can still do that test. She will also follow-up with her primary care provider in the next 1 to 2 weeks. She is eating a full meal. No nausea or vomiting or abdominal pain. No signs or symptoms of withdrawal. Sodium is now normal. She is discharged in stable condition. Temperature is 36.8, heart rate 75, blood pressure 139/82. Respirations 16, 98% on room air. She is a 5 foot 6 inch white female with 61 kg weight. She has a reddened rough face that starts on the bridge of her nose and expands laterally along the nasolabial fold. It then goes down around the perioral surface to her chin. She also has the same redness underneath the hair of her eyebrows. This appears to be the distribution of seborrheic dermatitis. Neck is supple. Lungs are clear. Regular rate and rhythm. Abdomen is soft and nontender. Extremities without edema. She still has mild neutropenia. White cell count was 4.5 and 3.1. Macrocytic anemia of 9.8 g of hemoglobin. I am asking her to make sure she takes B12, folate and thiamine [id number]. A vitamin with the thiamine capsule would be adequate. Sodium was 120 on admission. 131 on the morning of discharge and repeat sodium was 128. Total bili 1.4, 1.9. AST is 212 and 261. ALT is 83 and 88. Lipase 116 on admission and 20 by discharge. This document was made in part using voice recognition software. While efforts are made to proofread this document, sound alike and grammatical errors may occur. - ALLERGIES Allergies/Adverse Reactions: Allergies Allergy/AdvReac Type Severity Reaction Status Date / Time No Known Drug Allergies Allergy Verified 11/22/23 14:28 - MEDICATIONS Home Medications: Ambulatory Orders Medication Instructions Recorded Confirmed Fluoxetine HCl [Prozac] 20 mg PO DAILY 11/22/23 11/22/23 Folic Acid 10 mg PO DAILY 11/22/23 11/22/23 Lisinopril [Zestril] 10 mg PO DAILY 11/22/23 11/22/23 Metoprolol Succinate [Toprol Xl] 50 mg PO DAILY 11/22/23 11/22/23 Pantoprazole Sodium [Protonix] 20 mg PO DAILY 11/22/23 11/22/23 - LABS Result Diagrams: 11/23/23 05:31 11/23/23 11:45
[2023-11-25 10:07] LABS: HBsAG SCREEN Negative (Negative); HCV AB Non Reactive (Non Reactive); HEPATITIS B CORE IGM AB Negative (Negative)
== END 2023-11-23 16:00 | disposition home or self-care (01) ==
LOC: ED 13:13 → MS2 16:15 → INTOOBSV 16:15
PROVIDERS: ADMIT Specialist; ATTEND Specialist
DX: E87.1 Hypo-osmolality and hyponatremia (principal); F10.239 Alcohol dependence with withdrawal, unspecified; K70.10 Alcoholic hepatitis without ascites; R20.0 Anesthesia of skin; K21.9 Gastro-esophageal reflux disease without esophagitis; L21.9 Seborrheic dermatitis, unspecified; D75.89 Other specified diseases of blood and blood-forming organs; R79.89 Other specified abnormal findings of blood chemistry; I10 Essential (primary) hypertension; I49.3 Ventricular premature depolarization; D70.9 Neutropenia, unspecified; G89.29 Other chronic pain; M54.9 Dorsalgia, unspecified; I73.00 Raynaud's syndrome without gangrene; F34.1 Dysthymic disorder; R10.84 Generalized abdominal pain; Z79.899 Other long term (current) drug therapy; Z81.1 Family history of alcohol abuse and dependence; Z82.3 Family history of stroke; Z82.49 Family history of ischemic heart disease and other diseases of the circulatory system; Z83.3 Family history of diabetes mellitus
CPT/HCPCS: 36415; 76700; 80048; 80053; 80074; 80306; 82607; 82746; 83690; 83735; 84484; 85025; 93005; 96365; 96375; 99285; A9270; G0378; J3411